=== PATIENT | male | born 1970 | race Caucasian/White ===

== ENCOUNTER 2020-08-15 23:12 | Emergency (ER) | payer BC ==
[2020-08-15] MEDS ORDERED: Tetracaine 0.5% PF 4 ML BOT ONE (23:23)
[2020-08-15] MEDS ORDERED: Fluorescein Opthalmic Strip ONE (23:23)
== END 2020-08-15 23:40 | disposition home or self-care (01) ==
LOC: BURERS 23:12
DX: T15.01XA Foreign body in cornea, right eye, initial encounter (principal); E78.5 Hyperlipidemia, unspecified; Z79.899 Other long term (current) drug therapy
CPT/HCPCS: 99283